=== PATIENT | male | born 1995 | race Caucasian/White ===

== ENCOUNTER 2017-12-17 22:35 | Emergency (ER) | payer OTHER ==
[2017-12-17] MEDS ORDERED: IPRATROPIUM/ALBUTEROL 3 ML NEB INH STA (22:45)
[2017-12-17] MEDS ORDERED: predniSONE 20 MG TABLET PO STA (22:45)
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
[2017-12-17] MEDS ORDERED: ALBUTEROL NEB 2.5 MG/3 ML INH ONE (22:54)
[2017-12-17] MEDS ORDERED: IPRATROPIUM/ALBUTEROL 3 ML NEB INH ONE (22:56)
[2017-12-17 23:37] VITALS: BP 124/76
== END 2017-12-17 23:36 | disposition home or self-care (01) ==
LOC: ED 22:35
DX: J45.901 Unspecified asthma with (acute) exacerbation (principal)
CPT/HCPCS: 94640; 99283; J7512

== ENCOUNTER 2017-12-26 09:24 | Emergency (ER) | payer OTHER ==
[2017-12-26 09:29] VITALS: BP 140/88
[2017-12-26] MEDS ORDERED: ALBUTEROL NEB 2.5 MG/3 ML INH STA (09:36)
[2017-12-26] MEDS ORDERED: CETIRIZINE 10 MG TABLET PO STA (10:07)
[2017-12-26] MEDS ORDERED: DEXAMETHASONE 10 MG/ML VIAL PO STA (10:07)
--- NOTE | 2017-12-26 10:20 | ED Physician Documentation ---
PD HPI DYSPNEA - Stated complaint Stated Complaint: WHEEZING/SOA - Chief complaint Chief Complaint: Resp - History obtained from History obtained from: Patient - History of Present Illness Timing - onset: How many days ago (4-5) Timing - onset during: Light activity Timing - duration: Days Timing - details: Gradual onset, Still present Inciting event(s): No: Out of meds, URI Improved by: Inhaler/neb (but only for short time) Associated symptoms: Wheezing. No: Fever, Cough, Hemoptysis, Chest pain / discomfort, Palpitations, Bilateral edema Review of Systems Constitutional: denies: Fever Nose: denies: Rhinorrhea / runny nose, Congestion Throat: denies: Sore throat Cardiac: denies: Chest pain / pressure, Palpitations Respiratory: reports: Dyspnea, Wheezing. denies: Cough GI: denies: Vomiting, Diarrhea Skin: denies: Rash PD PAST MEDICAL HISTORY - Past Medical History Past Medical History: Yes Respiratory: Asthma - Past Surgical History Past Surgical History: No - Present Medications Home Medications: Ambulatory Orders Medication Instructions Recorded Confirmed Albuterol Sulf [Ventolin Hfa 1 - 2 puffs INH Q4HR PRN 12/17/17 Inhaler] Albuterol Sulf [Ventolin Hfa 2 - 3 puffs INH Q4HR PRN #1 inhaler 12/26/17 Inhaler] Dexamethasone [Decadron] 4 mg PO DAILY #7 tablet 12/26/17 Fluticasone 110 Mcg [Flovent] 1 puffs INH BID #1 inhaler 12/26/17 - Allergies Allergies/Adverse Reactions: Allergies Allergy/AdvReac Type Severity Reaction Status Date / Time No Known Drug Allergies Allergy Verified 12/17/17 22:50 - Social History Does the pt smoke?: No Smoking Status: Never smoker Does the pt drink ETOH?: Yes Does the pt have substance abuse?: No - Immunizations Immunizations are current?: Yes PD ED PE NORMAL - Vitals Vital signs reviewed: Yes - General General: Alert and oriented X 3, No acute distress, Well developed/nourished - HEENT HEENT: Pharynx benign - Neck Neck: Supple, no meningeal sign, No adenopathy - Cardiac Cardiac: RRR, No murmur - Respiratory Respiratory: No: Clear bilaterally (no coarse sounds but has diffuse exp wheezing. No accessory muscle use. Able to talk sentences. ) Results - Vitals Vitals: Vital Signs - 24 hr 12/26/17 12/26/17 09:26 09:47 Temperature 36.3 C L Heart Rate 110 H 88 Respiratory 20 16 Rate Blood Pressure 140/88 H O2 Saturation 94 Oxygen O2 Source Room air PD MEDICAL DECISION MAKING - ED course Complexity details: re-evaluated patient (feels much better after neb.), considered differential, d/w patient - Sepsis Event Vital Signs: Vital Signs - 24 hr 12/26/17 12/26/17 09:26 09:47 Temperature 36.3 C L Heart Rate 110 H 88 Respiratory 20 16 Rate Blood Pressure 140/88 H O2 Saturation 94 Oxygen O2 Source Room air Departure - Departure Disposition: 01 Home, Self Care Clinical Impression: Acute exacerbation of extrinsic asthma Condition: Stable Record reviewed to determine appropriate education?: Yes Instructions: ED Reactive Airway Disease Follow-Up: DIAM[facility] Pacheco [Provider Group] Prescriptions: Albuterol Sulf [Ventolin Hfa Inhaler] 2 - 3 puffs INH Q4HR PRN #1 inhaler PRN Reason: Shortness Of Air/Wheezing Dexamethasone [Decadron] 4 mg PO DAILY #7 tablet Fluticasone 110 Mcg [Flovent] 1 puffs INH BID #1 inhaler Comments: Use your albuterol inhaler 2-3 puffs 4 times a day for the next several days to week. Add extra puffs if needed. Also take Decadron steroid orally daily for a week. After that start fluticasone inhaled steroid twice daily for the next month. Follow-up with your primary if not improving of the next few days and for ongoing care. Discharge Date/Time: 12/26/17 10:45
[2017-12-26] MEDS ORDERED: CHERRY SYRUP 10 ML UDC PO ONE (10:22)
== END 2017-12-26 10:45 | disposition home or self-care (01) ==
LOC: ED 09:24
DX: J45.901 Unspecified asthma with (acute) exacerbation (principal)
CPT/HCPCS: 94150; 94640; 99283; A9270